=== PATIENT | male | born 1960 | race Caucasian/White ===

== ENCOUNTER 2017-03-26 07:22 | Day surgery (SDC) | payer OTHER ==
[2017-03-26] VITALS (14 sets, daily range): BP systolic 124–151; BP diastolic 75–86; PULSE 20–100; RESP 12–20; Ht 175.3 cm; Wt 99.7 kg
[~2017-03-26] VITALS: Ht 175.3 cm; Wt 99.7 kg
[~2017-03-26 07:22] MED LIST: ATROPINE 1 MG/10 ML SYRINGE IV PRN; DIPHENHYDRAMINE 50 MG INJ IV PRN; EPHEDrine SULFATE 50 MG/5 ML SYG IV PRN; FENTAnyl 50 MCG/ML VIAL IV PRN; FLUMAZENIL 0.5 MG INJ ONE; HYDROmorphONE (0.2 MG/ML) 10ML SYG IV PRN; LABETALOL HCL 20MG INJ IV PRN; MEPERIDINE 25 MG INJ IV PRN; MIDAZOLAM 1 MG/ML 2 ML INJ IV PRN; ONDANSETRON 4 MG INJ IV PRN; OXYCODONE/ACETAMINOPHEN (5/325) TAB PO PRN; hydrALAzine 20 MG INJ IV PRN; morphine (1 MG/ML) 10ML SYRINGE IV PRN
[2017-03-26] MEDS ORDERED: PROPOFOL 20 ML ONE (08:21)
[2017-03-26] MEDS ORDERED: ROCURONIUM 50 MG INJ ONE ×2 (08:21→08:22)
[2017-03-26] MEDS ORDERED: GLYCOPYRROLATE 1 MG INJ ONE (08:21)
[2017-03-26] MEDS ORDERED: LIDOCAINE 2% (SDV) 5 ML INJ ONE (08:21)
[2017-03-26] MEDS ORDERED: MIDAZOLAM 1 MG/ML 2 ML INJ ONE (08:22)
[2017-03-26] MEDS ORDERED: FENTAnyl 50 MCG/ML VIAL ONE (08:22)
[2017-03-26] MEDS ORDERED: SUCCINYLCHOLINE CHLORIDE 100 MG/5 ML SYG IV ONE (08:22)
[2017-03-26] MEDS ORDERED: NEOSTIGMINE 3 MG/3 ML SYRINGE ONE (08:22)
[2017-03-26] MEDS ORDERED: DEXAMETHASONE 4 MG/ML 1 ML INJ ONE (08:23)
[2017-03-26] MEDS ORDERED: ROPIVACAINE 0.5 % 30 ML VIAL ONE (08:23)
[2017-03-26] MEDS ORDERED: ONDANSETRON 4 MG INJ ONE (08:23)
[2017-03-26] MEDS ORDERED: NORCO (09:21)
--- NOTE | 2017-03-26 09:21 | RADRPT ---
PROCEDURE: XR Chest. CLINICAL INDICATION: Preop. TECHNIQUE: Single frontal view of the chest was obtained. COMPARISON: None FINDINGS: The cardiomediastinal silhouette is normal in size. No focal consolidation is seen. No pleural effusion is seen. No definite pneumothorax. No acute osseous abnormality. IMPRESSION: No radiographic evidence of an acute cardiopulmonary process. RPTAT: AAEE Misha Paz Physician Date Time Electronically viewed and signed by Misha Paz Physician on 03/26/2017 09:21 PH/
[2017-03-26 09:26] LABS: BASOPHIL # 0.1 10^3/ul (0.0-0.1); BASOPHILS % 0.9 % (0.0-2.0); EOSINOPHILS # 0.3 10^3/ul (0.0-0.5); EOSINOPHILS % 4.5 % (0.0-7.0); HEMOGLOBIN 15.5 g/dl (14.0-18.0); LYMPHOCYTES # 2.3 10^3/ul (0.8-2.9); LYMPHOCYTES % 33.1 % (15.0-51.0); MEAN CORPUSCULAR HEMOGLOBIN 29.6 pg (29.0-33.0); MEAN CORPUSCULAR HGB CONC 33.7 g/dl (32.0-37.0); MONOCYTE # 0.6 10^3/ul (0.3-0.9); MONOCYTES % 8.1 % (0.0-11.0); NEUTROPHIL # 3.6 10^3/ul (1.6-7.5); NEUTROPHILS % 53.1 % (39.0-77.0); PLATELET COUNT 219 10^3/UL (140-415); RED BLOOD COUNT 5.23 10^6/ul (4.70-6.10); RED CELL DISTRIBUTION WIDTH 13.4 % (11.5-14.5); WHITE BLOOD COUNT 6.8 10^3/ul (4.8-10.8)
[2017-03-26] MEDS ORDERED: hydrALAzine 20 MG INJ ONE (09:36)
[2017-03-26 09:38] LABS: ADD UMIC NO; UR ASCORBIC ACID NEGATIVE (NEGATIVE); UR BILIRUBIN (Dip) NEGATIVE (NEGATIVE); UR BLOOD (Dip) NEGATIVE (NEGATIVE); UR CLARITY CLEAR (CLEAR); UR COLOR YELLOW (YELLOW); UR GLUCOSE (Dip) NEGATIVE (NEGATIVE); UR KETONES (Dip) NEGATIVE (NEGATIVE); UR LEUKOCYTE ESTERASE (Dip) NEGATIVE Leu/ul (NEGATIVE); UR NITRITE (Dip) NEGATIVE (NEGATIVE); UR SPECIFIC GRAVITY (Dip) 1.018 (1.003-1.030); UR TOTAL PROTEIN (Dip) NEGATIVE (NEGATIVE); UR UROBILINOGEN (Dip) NEGATIVE (NEGATIVE)
[2017-03-26 09:46] LABS: INR 0.91; PARTIAL THROMBOPLASTIN TIME 32.2 Sec (25.0-35.0); PROTIME 12.3 Sec (11.9-14.9)
[2017-03-26 09:48] LABS: ALBUMIN 4.7 g/dl (3.3-4.9); ALBUMIN/GLOBULIN RATIO 1.42; BILIRUBIN,INDIRECT 0.2 mg/dl (0-1.1); BILIRUBIN,TOTAL 0.2 mg/dl (0.2-1.3)
[2017-03-26 09:50] LABS: CALCIUM 10.5 mg/dl (8.4-10.2); CREATININE 0.95 mg/dl (0.61-1.24); POTASSIUM 5.1 mmol/L (3.5-5.1)
[2017-03-26] MEDS ORDERED: SOD CHLORIDE 0.9% 1,000 ML IV SCH (10:45)
--- NOTE | 2017-03-26 10:48 | HPN ---
Date/Time of Note Date/Time of Note DATE: 03/26/17 TIME: 10:48 Interval H&P Admission Note Pt. seen H&P reviewed: No system changes NICOLE MARSH MD Mar 26, 2017 10:48
[2017-03-26] MEDS ORDERED: ONDANSETRON 4 MG INJ IV PRN ×2 (11:00→16:33)
[2017-03-26] MEDS ORDERED: morphine 2 MG INJ IV PRN (11:00)
[2017-03-26] MEDS ORDERED: OXYCODONE/ACETAMINOPHEN (5/325) TAB PO PRN ×4 (11:00→16:33)
[2017-03-26] MEDS ORDERED: VANCOMYCIN 1 GM (PMX) 250 ML ONE (11:07)
[2017-03-26] MEDS ORDERED: HYDROmorphONE (0.2 MG/ML) 10ML SYG IV ONE (16:26)
[2017-03-26] MEDS ORDERED: MEPERIDINE 25 MG INJ ONE (16:26)
--- NOTE | 2017-03-26 16:29 | OPPN ---
Date/Time of Note Date/Time of Note DATE: 03/26/17 TIME: 16:23 Operative Report Preoperative Diagnosis Right rotator cuff tear, biceps tendinopathy, impingement, AC arthritis Postoperative Diagnosis Right rotator cuff, biceps tendinopathy, AC joint arthritis, impingement, partial subscapularis tear, grade II condromalacia humeral head Operation/Procedure Performed Right shoulder arthroscopy, rotator cuff repair, biceps tenodesis, extensive debridement, subacromial decompression, distal clavicle excision, Surgeon see signature line hr assistant Zehra Anesthesia: general Estimated blood loss: 0 - 10 ml's Transfusion Required none Specimen none Grafts/Implants none Complications none NICOLE MARSH MD Mar 26, 2017 16:29
[2017-03-26] MEDS ORDERED: morphine (1 MG/ML) 10ML SYRINGE IV PRN ×3 (16:30)
[2017-03-26] MEDS ORDERED: FENTAnyl 50 MCG/ML VIAL IV PRN ×2 (16:31→16:32)
[2017-03-26] MEDS ORDERED: HYDROmorphONE (0.2 MG/ML) 10ML SYG IV PRN ×2 (16:31→17:00)
[2017-03-26] MEDS ORDERED: LABETALOL HCL 20MG INJ IV PRN (16:34)
[2017-03-26] MEDS ORDERED: EPHEDrine SULFATE 50 MG/5 ML SYG IV PRN (16:34)
[2017-03-26] MEDS ORDERED: hydrALAzine 20 MG INJ IV PRN (16:34)
[2017-03-26] MEDS ORDERED: ATROPINE 1 MG/10 ML SYRINGE IV PRN (16:35)
[2017-03-26] MEDS ORDERED: MEPERIDINE 25 MG INJ IV PRN (16:35)
[2017-03-26] MEDS ORDERED: DIPHENHYDRAMINE 50 MG INJ IV PRN (16:36)
[2017-03-26] MEDS ORDERED: MIDAZOLAM 1 MG/ML 2 ML INJ IV PRN (16:36)
[2017-03-26] MEDS: HYDROmorphONE (0.2 MG/ML) 10ML SYG IV PRN ×3 (16:39→17:05)
--- NOTE | 2017-03-26 20:34 | RADRPT ---
Vent Rate: 75 bpm RR Interval: 0 msec AK Interval: 132 msec QRS Duration: 136 msec QT Interval: 404 msec QTC Interval: 451 msec P-R-T [place]: 71 - 85 - -18 degrees Sinus rhythm with premature supraventricular complexes Right bundle branch block Lateral infarct , age undetermined Possible Inferior infarct , age undetermined Abnormal ECG Electronically Signed By: Fausto Denson [id number]
--- NOTE | 2017-03-26 21:48 | OPR ---
DATE OF OPERATION: 03/26/2017 LOCATION: [facility] [place] PREOPERATIVE DIAGNOSES: 1. Right shoulder impingement. 2. Degenerative arthritis of the acromioclavicular joint. 3. Rule out tear of the rotator cuff and biceps. POSTOPERATIVE DIAGNOSES: 1. Right shoulder impingement. 2. Degenerative arthritis, right acromioclavicular joint. 3. Fraying of the labrum. 4. Grade II chondromalacia, posterior humeral head. 5. Complete tear of rotator cuff, C3. 6. Tear of the biceps. 7. Indicate split tear of the subscapularis. OPERATION PERFORMED: 1. Arthroscopy, right shoulder. 2. Extensive debridement of the shoulder. 3. Subacromial decompression. 4. Zaira excision 1.2 cm of distal clavicle. 5. Repair of rotator cuff with 1 triple loaded Super Revo screw. 6. Biceps tenodesis. 7. Repair of the split tear of the subscapularis. Extremely complex and difficult procedure because the patient was quite large, he had a very high BM I over 40 which made doing the surgery more difficult. In addition, he had numerous problems in the shoulder and necessitated multiple operations, and the anatomy was somewhat distorted because of th e situation. Therefore, an extra 60 minutes of operative time was required (22). SURGEON: Nicole Marsh MD [employer] SUPERVISOR: Frederick Shahid ANESTHESIA: General with supraclavicular block. DESCRIPTION OF PROCEDURE: The patient taken to the operating room and placed in supine position. S atisfactory endotracheal anesthesia was administered. Satisfactory supraclavicular block was given. One gram of vancomycin given intravenously. Patient was rolled in the left lateral decubitus posi tion, secured with beanbag, kidney rest, axillary roll, arms were carefully padded. Exam under anes thesia revealed full range of motion with no evidence of any instability. The right shoulder was prepped and draped in the usual manner, suspended in traction. Posterior and anterior portals were made. The biceps looked like it was subluxated and also torn. He had a lot of pain preoperatively along the biceps, felt that he would need tenodesis. There was fraying of th e posterior labrum. Posterior recess was intact. Glenoid was smooth and glistening. Rotator cuff had a full thickness tear, C3, anterior portion of the supraspinatus. Superior, middle and inferior glenohumurus were intact. There was a split tear of the subscapularis. There was grade 2 chondrom alacia of the posterior humeral head. Rest of the humeral head was intact. There was synovitis thr oughout the joint. A shaver was inserted and synovectomy was performed. The labrum anteriorly and posteriorly were debrided. The rotator cuff was debrided along the supraspinatus and then along the infraspinous. A special hitch was used in the biceps, using #2 FiberWire. The biceps was then norris y carefully cut with electrosurgery under direct vision, until it retracted. Subscapularis split wa s repaired with #2 FiberWire with an SMC knot. Marker was placed with #1 PDS in the rotator cuff te ar along the supraspinatus. Our attention was then turned to the bursa. Bursoscopy, subtotal bursectomy was performed with extensive amount of bursitis throughout the shoul soto. The area of the full thickness rotator cuff was again visualized. SUBACROMIAL DECOMPRESSION: The entire subacromial space was cleared of all debris. Five mm of bone was removed from posterior to anterior, and the coracoacromial ligament was released with electrosu rgery. Once the entire acromion had been flattened, there was good room for the rotator cuff to mov e. ZAIRA EXCISION DISTAL CLAVICLE: The distal clavicle was exposed with electrosurgery, bleeders wer e coagulated. Shaver was used to debride it further. A bur was then used to perform resection of d istal clavicle through multiple portals, resected approximately 1.2 cm of the distal clavicle. We w ere very careful to make sure no spurs were left dorsally on the top of the clavicle. Once an adequ ate Zaira excision had been performed, our attention was turned to the rotator cuff. ROTATOR CUFF: The rotator cuff tear was carefully visualized, it was debrided, felt one triple-load ed Super Revo screw would be adequate to repair it. A triple Revo screw was inserted, sutures were passed using curved and straight crescents, and the sutures were tied with SMC knots. Excellent fix ation of the rotator cuff back to bone was obtained. The biceps was then sewn and tied as well, and tenodesed to the remaining rotator cuff. Multiple vent holes were then made to facilitate healing and bleeding. The wounds were irrigated clear. Wounds were closed with 3-0 black nylon and Steri-Strips and Ultra Sling. Compression dressing was applied and the patient was brought to recovery room in stable cond ition. End of procedure, sponge and needle count was correct. Patient tolerated procedure well. PATIENT LIAISON ORTHOPEDIC SURGEON: During the procedure, an pharmacy affairs assistant orthopedic surgeon was used at my request. The pharmacy affairs assistant helped with manipulating the arthroscope, also the pharmacy affairs assistant passed some of the sutures and tied some of the knots while I positioned and retracted and then reduced the rotator cuff repair. Without a skilled orthopedic surgeon assisting me, this could not have been done prop erly and therefore should be compensated appropriately. Dictated By: NICOLE MARSH MD RF/CHARLINE Conf#: [id number] DID#: [id number] CC: Frederick Shahid;*EndCC*
== END 2017-03-26 18:14 | disposition home or self-care (01) ==
LOC: SDS 07:22
PROVIDERS: ATTEND Orthopaedic Surgery
DX: M75.41 Impingement syndrome of right shoulder (principal); M19.011 Primary osteoarthritis, right shoulder; M94.211 Chondromalacia, right shoulder; M75.121 Complete rotator cuff tear or rupture of right shoulder, not specified as traumatic; S46.211D Strain of muscle, fascia and tendon of other parts of biceps, right arm, subsequent encounter; X58.XXXD Exposure to other specified factors, subsequent encounter; I25.10 Atherosclerotic heart disease of native coronary artery without angina pectoris; E78.5 Hyperlipidemia, unspecified; I10 Essential (primary) hypertension; I25.2 Old myocardial infarction
CPT/HCPCS: 29824; 29826; 29827; 29828; 71010; 80053; 81003; 85025; 85610; 85730; 93005; C1713; J0360; J1100; J1170; J2175; J2250; J2405; J2710; J2795; J3010; J3370